=== PATIENT | female | born 1960 | race Caucasian/White ===

== ENCOUNTER 2017-01-27 15:15 | Inpatient (IN) | payer OTHER ==
[~2017-01-27] VITALS: Ht 160 cm; Wt 54.2 kg
[2017-01-27] MEDS ORDERED: PANTOPRAZOLE IV 80 MG in SOD CHLORIDE 0.9% 100 ML IV STA (19:45)
[2017-01-27] MEDS ORDERED: SOD CHLORIDE 0.9% 1,000 ML IV STA (19:45)
[2017-01-27] MEDS ORDERED: OCTREOTIDE 500 MCG in SOD CHLORIDE 0.9% 49 ML IV STA (19:45)
[2017-01-27] MEDS ORDERED: PANTOPRAZOLE IV 80 MG in SOD CHLORIDE 0.9% 100 ML IVPB STA (19:45)
[2017-01-27] MEDS ORDERED: PANTOPRAZOLE 40 MG INJ IV STA (19:45)
[2017-01-27] MEDS ORDERED: OCTREOTIDE 50 MCG in SOD CHLORIDE 0.9% 25 ML IVPB STA (19:45)
[2017-01-27] MEDS ORDERED: FAMOTIDINE 20 MG INJ IV STA (19:45)
[2017-01-27] MEDS ORDERED: ONDANSETRON INJ 8 MG in DEXTROSE 5% 50 ML IVPB STA (19:45)
[2017-01-27 20:13] LABS: ADD SCAN DIFF NO
[2017-01-27 20:17] LABS: BASOPHILS % 0.4 % (0.0-2.0); HEMATOCRIT 28.5 % (37.0-47.0); HEMOGLOBIN 8.7 g/dl (12.0-16.0); LYMPHOCYTES # 2.5 10^3/ul (0.8-2.9); LYMPHOCYTES % 32.6 % (15.0-51.0); MEAN CORPUSCULAR HGB CONC 30.5 g/dl (32.0-37.0); MEAN CORPUSCULAR VOLUME 85.1 fl (82.0-101.0); MEAN PLATELET VOLUME 10.3 fl (7.4-10.4); MONOCYTE # 0.6 10^3/ul (0.3-0.9); MONOCYTES % 7.8 % (0.0-11.0); NEUTROPHIL # 4.6 10^3/ul (1.6-7.5); NEUTROPHILS % 58.8 % (39.0-77.0); PLATELET COUNT 190 10^3/UL (140-415); RED BLOOD COUNT 3.35 10^6/ul (4.20-5.40); WHITE BLOOD COUNT 7.8 10^3/ul (4.8-10.8)
[2017-01-27 20:27] LABS: INR 1.31; PROTIME 16.4 Sec (12.2-14.2); PT RATIO 1.3
[2017-01-27 20:28] LABS: PARTIAL THROMBOPLASTIN TIME 30.9 Sec (25.0-35.0)
[2017-01-27 20:38] LABS: ALBUMIN 3.3 g/dl (3.3-4.9); CHLORIDE 107 mmol/L (97-110); SODIUM 141 mmol/L (135-144)
[2017-01-27 20:39] LABS: POTASSIUM 4.4 mmol/L (3.5-5.1)
[2017-01-27 20:40] LABS: AMYLASE 57 U/L (11-123)
[2017-01-27] MEDS ORDERED: LACT10SO5 PO (20:40)
[2017-01-27 20:41] LABS: ALANINE AMINOTRANSFERASE 39 IU/L (13-69); ALBUMIN/GLOBULIN RATIO 0.94; ALKALINE PHOSPHATASE 90 IU/L (42-121); ANION GAP 14 (8-16); ASPARTATE AMINO TRANSFERASE 50 IU/L (15-46); BILIRUBIN,INDIRECT 1.1 mg/dl (0-1.1); BILIRUBIN,TOTAL 1.1 mg/dl (0.2-1.3); BLOOD UREA NITROGEN 27 mg/dl (7-20); CALCIUM 9.4 mg/dl (8.4-10.2); CARBON DIOXIDE 24 mmol/L (21-31); CREATININE 0.62 mg/dl (0.44-1.00); GLUCOSE 105 mg/dl (70-220); TOTAL PROTEIN 6.8 g/dl (6.1-8.1)
[2017-01-27] MEDS ORDERED: FURO20TA3 PO (20:41)
--- NOTE | 2017-01-27 20:41 | RADRPT ---
PROCEDURE: XR Chest. CLINICAL INDICATION: Over GI bleed. TECHNIQUE: PA and Lateral views of the chest were obtained. COMPARISON: No. FINDINGS: The soft tissues are normal. The bony elements are normal. The heart, cardiomediastinal silhouette and hilar structures are normal. The pulmonary vasculature is normal. There is a left-sided aorta. The lungs are clear. The costophrenic angles are normal. IMPRESSION: 1. Normal chest x-ray. RPTAT:AAJJ Physician Roma Date Time Electronically viewed and signed by Teo Hassan Physician on 01/27/2017 20:41 DAVID/
[2017-01-27] MEDS ORDERED: PROP60CA7 PO (20:43)
[2017-01-27] MEDS ORDERED: PROP20TA4 PO (20:43)
[2017-01-27] MEDS ORDERED: VITBC GTB (20:46)
[2017-01-27] MEDS ORDERED: B CO PO (20:46)
[2017-01-27] MEDS ORDERED: MULTI PO (20:46)
[2017-01-27 21:04] LABS: TROPONIN-I < 0.012 ng/ml (0.00-0.12)
--- NOTE | 2017-01-27 22:44 | ERA ---
ER Documentation Chief Complaint Date/Time DATE: 01/27/17 TIME: 22:38 Chief Complaint C/O BLOOD IN STOOL LAST NIGHT AND VOMITING BLOOD TODAY. HPI This is a 56-year-old female with a known history of esophageal varices secondary to liver cirrhosis from alcoholism diagnosed in October 2016. The patient indicates that yesterday evening she noticed dark tarry stools. She awoke this morning roughly 10 hours prior to arrival and had roughly 6 episodes of hemoptysis. She is feeling lightheaded and dizzy but denies a headache. She indicates she had a similar episode of hemoptysis on her diagnosis of liver cirrhosis in October 2016 and underwent an upper endoscopy with cauterization of her varices. She denies any fever shaking or chills. She has no shortness of breath at rest or exertion. She indicates she has not consumed any alcohol since October 2016 and denies any illicit drug use ROS All systems reviewed and are negative except as per history of present illness. Medications Home Meds Reported Medications Multivitamins* (Theragran*) 1 Tab Tab, 1 TAB PO DAILY, TAB 01/27/17 Vitamin B Complex/Vit C (Total B with C) 1 Each Tablet, 1 EACH GTB, TAB 01/27/17 B Complex with Vitamin C ([place] with C) 1 Each Tablet, 1 EACH PO, TAB 01/27/17 Propranolol Hcl* (Propranolol Hcl*) 20 Mg Tablet, 20 MG PO TWICE DAILY, TAB 01/27/17 Furosemide* (Furosemide*) 20 Mg Tablet, 20 MG PO BID, #30 TAB 01/27/17 Lactulose* (Lactulose*) 10 Gm/15 Ml Solution, 10 GM PO TAKE 20ml BID, ML 01/27/17 Discontinued Reported Medications Propranolol Hcl* (Inderal* LA) 60 Mg Cap.sa.24h, 60 MG PO DAILY, CAP 01/27/17 Allergies Allergies: Coded Allergies: No Known Allergy (Unverified , 01/27/17) PMhx/Soc History of Surgery: No Anesthesia Reaction: No Hx Neurological Disorder: No Hx Respiratory Disorders: No Hx Cardiac Disorders: Yes (HTN,hypotensive) Hx Psychiatric Problems: No Hx Miscellaneous Medical Probl: Yes (esophageal varices,liver cirrhosis) Hx Alcohol Use: No Hx Substance Use: No Hx Tobacco Use: Yes (quit) Smoking Status: Former smoker Physical Exam Vitals Vital Signs Date Time Temp Pulse Resp B/P Pulse Ox O2 Delivery O2 Flow Rate FiO2 01/27/17 20:13 Nasal Cannula 2 01/27/17 20:09 96 17 101/66 100 Nasal Cannula 2.0 01/27/17 15:33 97.7 94 16 93/52 99 Physical Exam Constitutional:Well-developed. Well-nourished. Actively vomiting bright red blood. HEENT:Normocephalic. Atraumatic.Pupils were equal round reactive to light. Moist mucous membranes.No tonsillar exudates. Conjunctival pallor Neck: No nuchal rigidity. No lymphadenopathy. No posterior cervical spine tenderness or step-offs. Respiratory: Not using accessory muscles of respiration.Lungs were clear to auscultation bilaterally. No rhonchi. No rales. No wheezing. Cardiovascular: Regular rate regular rhythm.No murmurs. No rubs were appreciated.S1, S2 normal. Distal pulses are palpable 2+ bilaterally. GI: Abdomen was soft. Hepatomegaly. Nontender. Non Distended. No pulsatile abdominal masses or bruits. No rebound. No guarding. Bowel sounds were present and normal. Rectal: No hemorrhoids present. Melanotic stools present if patient had a bowel movement upon arrival into the emergency department with fecal occult blood test positive Muscle skeletal: Full range of motion of both the upper and lower extremities bilaterally.Normal muscle tone.No assymetrical calf tenderness or swelling. Skin: Diffuse pallor with no petechia, no purpura. No lesions on the palms or the soles of the feet. No maculopapular rash. NEURO: Patient was alert, awake, orientated x3.No facial droop. Gait observed and normal with no ataxia.Speech had regular rate and rhythm. No focal neurological deficits. Result Diagram: 01/27/17194901/27/171949 Results 24 hrs Laboratory Tests Test 01/27/17 19:50 White Blood Count 7.810^3/ul Red Blood Count 3.3510^6/ul Hemoglobin 8.7g/dl Hematocrit 28.5% Mean Corpuscular Volume 85.1fl Mean Corpuscular Hemoglobin 26.0pg Mean Corpuscular Hemoglobin Concent 30.5g/dl Red Cell Distribution Width 19.0% Platelet Count 80439^3/UL Mean Platelet Volume 10.3fl Neutrophils % 58.8% Lymphocytes % 32.6% Monocytes % 7.8% Eosinophils % 0.0% Basophils % 0.4% Nucleated Red Blood Cells % 0.0/100WBC Neutrophils # 4.610^3/ul Lymphocytes # 2.510^3/ul Monocytes # 0.610^3/ul Eosinophils # 0.010^3/ul Basophils # 0.010^3/ul Nucleated Red Blood Cells # 0.010^3/ul Prothrombin Time 16.4Sec Prothrombin Time Ratio 1.3 INR International Normalized Ratio 1.31 Activated Partial Thromboplast Time 30.9Sec Sodium Level 141mmol/L Potassium Level 4.4mmol/L Chloride Level 107mmol/L Carbon Dioxide Level 24mmol/L Anion Gap 14 Blood Urea Nitrogen 27mg/dl Creatinine 0.62mg/dl Glucose Level 105mg/dl Calcium Level 9.4mg/dl Total Bilirubin 1.1mg/dl Direct Bilirubin 0.00mg/dl Indirect Bilirubin 1.1mg/dl Aspartate Amino Transf (AST/SGOT) 50IU/L Alanine Aminotransferase (ALT/SGPT) 39IU/L Alkaline Phosphatase 90IU/L Troponin I < 0.012ng/ml Total Protein 6.8g/dl Albumin 3.3g/dl Globulin 3.50g/dl Albumin/Globulin Ratio 0.94 Amylase Level 57U/L Lipase 179U/L Current Medications Medications (Trade) Dose Ordered Sig/Luna Route PRN Reason Start Time Stop Time Status Last Admin Dose Admin Sodium Chloride (NS) 1,000 ml @ 1,000 mls/hr Q1H STAT IV 01/27/17 19:45 01/27/17 20:44 DC 01/27/17 20:18 Famotidine (Pepcid Iv) 20 mg ONCE STAT IV 01/27/17 19:45 01/27/17 19:55 DC 01/27/17 20:09 Pantoprazole 40 mg 40 mg ONCE STAT IV 01/27/17 19:45 01/27/17 19:55 DC 01/27/17 20:09 Pantoprazole 80 mg/Sodium Chloride 100 ml @ 400 mls/hr ONCE STAT IVPB 01/27/17 19:45 01/27/17 19:59 DC 01/27/17 22:24 Pantoprazole 80 mg/Sodium Chloride 100 ml @ 10 mls/hr ONCE STAT IV 01/27/17 19:45 01/28/17 05:44 Octreotide Acetate 50 mcg/ Sodium Chloride 26 ml @ 100 mls/hr Q16M STAT IVPB 01/27/17 19:45 01/27/17 20:00 DC 01/27/17 21:06 Octreotide Acetate 500 mcg/ Sodium Chloride 50 ml @ 5 mls/hr ONCE STAT IV 01/27/17 19:45 01/28/17 05:44 01/27/17 21:34 Ondansetron HCl/ Dextrose (Zofran Inj/D5W) 54 ml @ 200 mls/hr ONCE STAT IVPB 01/27/17 19:45 01/27/17 20:01 DC 01/27/17 20:47 Procedures/MDM The patient presented to the emergency department with a presentation of upper gastrointestinal bleeding. My differential diagnosis included but was not limited to peptic ulcer disease, gastric or esophageal erosions, gastritis, esophageal varices, Padmaja-Molina tear, tumor or arteriovenous malformations. The patient was immediately placed in a engine monitor continuous pulse oximetry and IV access was established by nursing staff. Patient received a liter bolus of 0.9 normal saline. The patient was given IV Zofran as an antiemetic. She was typed and crossed and the patient was anemic with hemoglobin of 8.7 but given that her hemoptysis had resolved after IV Zofran, Protonix and octreotide drip, a blood transfusion was not given. 12 Lead EKG tracing ordered and reviewed by myself showed: Normal sinus rhythm of 89 bpm and no arrhythmia. NJ interval normal. QRS duration normal. No ST segment elevation No ST segment depression. No changes consistent with acute ischemia. Obtained a chest radiograph which showed no infiltrates no pneumothorax and no esophageal rupture pneumomediastinum. Blood cultures were obtained. The patient will be admitted in serious condition to the ICU under the care of the hospitalist on day with an anticipated stay of greater than 2 midnights. Critical Care: Time: 70 minutes Treatments/Evaluations: Close monitoring and treatment of unstable vital signs, cardiorespiratory, and neurologic status, while maintaining tight balance of fluid, respiratory, and cardiac interventions. Time does not include performing any of the above billable procedures. Departure Diagnosis: Primary Impression: Occult blood in stools Additional Impression: Upper gastrointestinal bleed Condition: Serious JOAN FIELDS Jan 27, 2017 22:44
[2017-01-28] VITALS (15 sets, daily range): BP systolic 86–113; BP diastolic 51–66; PULSE 82–93; RESP 16–26; TEMP 98.2; Ht 160 cm; Wt 54.2 kg
[2017-01-28] MEDS: PANTOPRAZOLE IV 80 MG in SOD CHLORIDE 0.9% 100 ML IV SCH ×3 (01:11→22:45)
[2017-01-28 02:25] LABS: ADD UMIC YES; URINE BILIRUBIN (Dip) NEGATIVE (NEGATIVE); URINE BLOOD (Dip) NEGATIVE (NEGATIVE); URINE COLOR LT. YELLOW (YELLOW); URINE GLUCOSE (Dip) NEGATIVE (NEGATIVE); URINE KETONES (Dip) TRACE (NEGATIVE); URINE LEUKOCYTE ESTERASE (Dip) 1+ (NEGATIVE); URINE NITRITE (Dip) NEGATIVE (NEGATIVE); URINE TOTAL PROTEIN (Dip) NEGATIVE (NEGATIVE); URINE UROBILINOGEN (Dip) 0.2 E.U./dL (0.1-1.0)
[2017-01-28 02:39] LABS: BACTERIA,URINE FEW; SQUAMOUS EPITHELIAL CELL,UR MANY; URINE RBCS 0-2 /HPF (0)
--- NOTE | 2017-01-28 05:19 | HP ---
Date/Time of Note Date/Time of Note DATE: 01/28/17 TIME: 05:09 Assessment/Plan Assessment/Plan Assessment/Plan IMPRESSION 1. GI Bleed. likely 2/2 bleeding varices 2. Decompensated Liver Cirrhosis 3. Anemia 2/2 GI Bleed PLAN Admit to ICU Protonix and Octreotide gtt Keep NPO with IVF monitor h/h and transfuse as needed GI consult HPI/ROS Admit Date/Time Admit Date/Time Hx of Present Illness Patient is a 56 yo female with hx of HTN and alcoholic liver cirrhosis who presented to ER c/o vomiting blood with clots and dark stool since yesterday. She reported multiple episodes of hemoptysis. She was dx'd with cirrhosis and underwent EGD in October for upper GI bleed. At that time, she was found to have varices that were cauterized. She also reported of generalized weakness and dizziness. Denied CP, SOB, fever, chills. In ER, hgb was 8.7. Initial BP was 93/52 with HR in 90s. . PMH/Family/Social Social History Smoking Status: Former smoker Exam/Review of Systems Vital Signs Vitals Vital Signs Date Time Temp Pulse Resp B/P Pulse Ox O2 Delivery O2 Flow Rate FiO2 01/28/17 02:00 81 17 93/44 98 Nasal Cannula 2.0 01/27/17 15:33 97.7 Intake and Output 01/27/17 01/27/17 01/28/17 15:00 23:00 07:00 Intake Total 1179 ml Balance 1179 ml Labs Result Diagram: 01/27/17 1950 01/27/17 1950 Medications Medications Current Medications Pantoprazole 80 mg/Sodium Chloride 100 ml @ 10 mls/hr Q10H IV ; Start 01/28/17 at 01:11 Octreotide Acetate 1 mg/ Sodium Chloride 100 ml @ 5 mls/hr Q20H IV ; Start 01/28 at 01:11 Dextrose/Sodium Chloride (D5-1/2ns) 1,000 ml @ 100 mls/hr Q10H IV ; Start 01/28 at 01:30 HERNAN UMANA MD Jan 28, 2017 05:19
[2017-01-28 05:34] LABS: ADD SCAN DIFF NO
[2017-01-28] MEDS: DEXTROSE 5%-0.45% NACL 1,000 ML IV SCH ×3 (05:43→22:47)
[2017-01-28 05:49] LABS: ABNORMAL IP MESSAGE 1; HEMATOCRIT 22.8 % (37.0-47.0); MEAN CORPUSCULAR HEMOGLOBIN 26.5 pg (29.0-33.0); MEAN CORPUSCULAR HGB CONC 30.3 g/dl (32.0-37.0); MEAN CORPUSCULAR VOLUME 87.7 fl (82.0-101.0); MEAN PLATELET VOLUME 10.3 fl (7.4-10.4); PLATELET COUNT 167 10^3/UL (140-415); RED CELL DISTRIBUTION WIDTH 19.4 % (11.5-14.5); WHITE BLOOD COUNT 7.7 10^3/ul (4.8-10.8)
[2017-01-28 05:57] LABS: INR 1.39; PROTIME 17.1 Sec (12.2-14.2); PT RATIO 1.3
[2017-01-28 05:58] LABS: PARTIAL THROMBOPLASTIN TIME 31.7 Sec (25.0-35.0)
[2017-01-28 06:00] LABS: HEMOGLOBIN 6.9 g/dl (12.0-16.0)
[2017-01-28 06:04] LABS: ALBUMIN 2.9 g/dl (3.3-4.9); ALBUMIN/GLOBULIN RATIO 0.93; BILIRUBIN,INDIRECT 0.9 mg/dl (0-1.1); BILIRUBIN,TOTAL 0.9 mg/dl (0.2-1.3); CALCIUM 8.8 mg/dl (8.4-10.2); CREATININE 0.7 mg/dl (0.44-1.00); IRON 69 ug/dl (35-150); POTASSIUM 4.7 mmol/L (3.5-5.1)
[2017-01-28 06:13] LABS: TOTAL IRON BINDING CAPACITY 364 ug/dl (241-421)
--- NOTE | 2017-01-28 06:59 | QN ---
Documentation Comment The patient has been in the ER for over 15 hours at this point waiting in ICU bed. Patient's vital signs are stable and I evaluated the patient and she seems comfortable. I do not believe she requires ICU level of care and will downgrade to a telemetry bed. KHUSHBU CHAVEZ MD Jan 28, 2017 06:59
[2017-01-28] MEDS: OCTREOTIDE 1 MG in SOD CHLORIDE 0.9% 95 ML IV SCH ×2 (07:48→22:45)
[2017-01-28 09:52] LABS: EOSINOPHILS # 0.1 10^3/ul (0.0-0.5); LYMPHOCYTES # 2.2 10^3/ul (0.8-2.9); MONOCYTE # 0.4 10^3/ul (0.3-0.9); NEUTROPHIL # 5.1 10^3/ul (1.6-7.5)
[2017-01-28] MEDS ORDERED: LIDOCAINE 2% (SDV) 5 ML INJ ONE (14:55)
[2017-01-28] MEDS ORDERED: PROPOFOL 40 ML ONE (14:55)
[2017-01-28] MEDS ORDERED: HYDROmorphONE (0.2 MG/ML) 10ML SYG IV PRN ×3 (16:00)
[2017-01-28] MEDS ORDERED: ONDANSETRON 4 MG INJ IV PRN (16:00)
[2017-01-28] MEDS ORDERED: PROCHLORPERAZINE 10 MG INJ IV PRN (16:00)
[2017-01-28] MEDS ORDERED: DIPHENHYDRAMINE 50 MG INJ IV PRN (16:00)
[2017-01-28] MEDS ORDERED: EPHEDrine SULFATE 50 MG/5 ML SYG IV PRN (16:00)
[2017-01-28] MEDS ORDERED: TRIMETHOBENZAMIDE 100 MG/ML VIAL IM PRN (16:00)
[2017-01-28] MEDS ORDERED: METOCLOPRAMIDE 10 MG INJ IV PRN (16:00)
[2017-01-28] MEDS: CEFTRIAXONE 1 GM/50 ML (PMX) 50 ML IVPB SCH (17:36)
--- NOTE | 2017-01-28 17:43 | CONS ---
Date/Time of Note Date/Time of Note DATE: 01/28/17 TIME: 17:29 Assessment/Plan Assessment/Plan Additional Assessment/Plan Assessment * Anemia * Hematemesis * Upper GI bleed * consider Bleeding esophageal varices Cirrhosis of liver Plan EGD today risks and benefits explained to patient agreed with procedure continue present medications monitor HandH q6 and transfuse per protocol Consultation Date/Type/Reason Admit Date/Time Date of Consultation: Jan 28, 2017 Type of Consultation: Gasroenterology Reason for Consultation GI bleed Referring Provider: HERNAN UMANA MD Hx of Present Illness 56 y/o female seen in the emergency room with complaint of hematemesis.Past medical history includes alcoholic liver cirrhosis,2 episode of EGD gastric banding secondary to bleeding esophageal varices .She had multiple episodes of hematemesis with blood clots with associated body weakness,dizziness but denies any chest pain ,fever,or hematochezia.Initial hemoglobin at the ER is 8.5 but later had episode of hematemesis about 200 cc.Subsequent repeat of hemoglobin revealed 6.5 hence 2 units of PRBC was transfused. On the floor ,patient was weak but no episode of hematemesis was noted Eyes: no complaints ENT: no complaints Respiratory: no complaints Cardiovascular: no complaints Gastrointestinal: blood, nausea, vomiting Genitourinary: no complaints Musculoskeletal: no complaints Skin: no complaints Neurologic: no complaints Endocrine: no complaints Lymphatic: no complaints Psychological: nl mood/affect, no complaints Immunologic: no complaints Past Medical History Medical History: GI bleed, other (cirrhosis) Past Surgical History Past Surgical Hx: endoscopy (endoscopy and banding) Family History Significant Family History: no pertinent family hx Social History Alcohol Use: none (stopped few years ago) Smoking Status: Former smoker Exam/Review of Systems Vital Signs Vitals Vital Signs Date Time Temp Pulse Resp B/P Pulse Ox O2 Delivery O2 Flow Rate FiO2 01/28/17 16:58 Nasal Cannula 2.0 01/28/17 16:36 86 01/28/17 16:08 17 105/57 100 01/28/17 15:52 98.0 Intake and Output 01/27/17 01/27/17 01/28/17 15:00 23:00 07:00 Intake Total 1179 ml Balance 1179 ml Exam Constitutional: alert, oriented, well developed Psych: nl mood/affect, no complaints Head: atraumatic, normocephalic Eyes: EOMI, PERRL, nl conjunctiva, nl lids, nl sclera ENMT: nl external ears & nose, nl lips & teeth, nl nasal mucosa & septum Neck: non-tender, supple Respiratory: clear to auscultation, normal air movement Cardiovascular: nl pulses, regular rate and rhythm Gastrointestinal: nl liver, spleen, non-tender, soft Musculoskeletal: nl extremities to inspection, nl gait and stance Extremities: normal pulses Neurological: nl mental status, nl speech, nl strength Skin: nl turgor, No rash or lesions Lymph: nl lymph nodes Results Result Diagram: 01/28/1751901/28/1720 Results 24 hrs Laboratory Tests Test 01/27/17 19:50 01/28/17 01:00 01/28/17 05:20 White Blood Count 7.8 7.7 Red Blood Count 3.35 L 2.60 #L Hemoglobin 8.7 L 6.9 #*L Hematocrit 28.5 L 22.8 L Mean Corpuscular Volume 85.1 87.7 Mean Corpuscular Hemoglobin 26.0 L 26.5 L Mean Corpuscular Hemoglobin Concent 30.5 L 30.3 L Red Cell Distribution Width 19.0 H 19.4 H Platelet Count 190 167 Mean Platelet Volume 10.3 10.3 Neutrophils % 58.8 66.0 Lymphocytes % 32.6 28.0 Monocytes % 7.8 5.0 Eosinophils % 0.0 1.0 Basophils % 0.4 Nucleated Red Blood Cells % 0.0 Neutrophils # 4.6 5.1 Lymphocytes # 2.5 2.2 Monocytes # 0.6 0.4 Eosinophils # 0.0 0.1 Basophils # 0.0 Nucleated Red Blood Cells # 0.0 Prothrombin Time 16.4 H 17.1 H Prothrombin Time Ratio 1.3 1.3 INR International Normalized Ratio 1.31 1.39 Activated Partial Thromboplast Time 30.9 31.7 Sodium Level 141 141 Potassium Level 4.4 4.7 Chloride Level 107 114 H Carbon Dioxide Level 24 22 Anion Gap 14 10 Blood Urea Nitrogen 27 H 26 H Creatinine 0.62 0.70 Glucose Level 105 112 Calcium Level 9.4 8.8 Total Bilirubin 1.1 0.9 Direct Bilirubin 0.00 0.00 Indirect Bilirubin 1.1 0.9 Aspartate Amino Transf (AST/SGOT) 50 H 48 H Alanine Aminotransferase (ALT/SGPT) 39 40 Alkaline Phosphatase 90 76 Troponin I < 0.012 Total Protein 6.8 6.0 L Albumin 3.3 2.9 L Globulin 3.50 H 3.10 Albumin/Globulin Ratio 0.94 0.93 Amylase Level 57 Lipase 179 Urine Color LT. YELLOW Urine Clarity CLEAR Urine pH 5.5 Urine Specific [place] 1.020 Urine Ketones TRACE H Urine Nitrite NEGATIVE Urine Bilirubin NEGATIVE Urine Urobilinogen 0.2 E.U./dL Urine Leukocyte Esterase 1+ H Urine Microscopic RBC 0-2 Urine Microscopic WBC 10-25 Urine Squamous Epithelial Cells MANY Urine Bacteria FEW Urine Hemoglobin NEGATIVE Urine Glucose NEGATIVE Urine Total Protein NEGATIVE Iron Level 69 Total Iron Binding Capacity 364 Percent Iron Saturation 19 L Ferritin 16.4 Medications Medications Current Medications Pantoprazole 80 mg/Sodium Chloride 100 ml @ 10 mls/hr Q10H IV Last administered on 01/28/17 11:18; Admin Dose 10 MLS/HR; Start 01/28/17 at 01:11 Octreotide Acetate 1 mg/ Sodium Chloride 100 ml @ 5 mls/hr Q20H IV Last administered on 01/28/17 07:48; Admin Dose 5 MLS/HR; Start 01/28/17 at 01:11 Dextrose/Sodium Chloride 1,000 ml @ 100 mls/hr Q10H IV Last administered on 12:18; Admin Dose 100 MLS/HR; Start 01/28/17 at 01:30 Ceftriaxone Sodium (Rocephin) 50 ml @ 100 mls/hr Q24H IVPB ; Start 01/28/17 at 15:00 CORTNEY RANGEL MD Jan 28, 2017 17:39
[2017-01-28 19:10] LABS: HEMATOCRIT 28.5 % (37.0-47.0); HEMOGLOBIN 9.3 g/dl (12.0-16.0)
[2017-01-29] VITALS (13 sets, daily range): BP systolic 100–126; BP diastolic 64–76; PULSE 76–98; RESP 16–18
[2017-01-29 00:46] LABS: HEMATOCRIT 26.5 % (37.0-47.0); HEMOGLOBIN 8.6 g/dl (12.0-16.0)
--- NOTE | 2017-01-29 04:58 | GILP ---
DATE OF PROCEDURE: PROCEDURE: Esophagogastroduodenoscopy with endoscopic variceal ligation. PREMEDICATION: Monitored anesthesia care by anesthesiologist. SURGEON: Cortney Rodriguez MD INSTRUMENT USED: Olympus panendoscope. TECHNIQUE: After informed consent, with the patient/relatives understanding the procedure, its indic ations, potential risks and complications, including but not limited to: allergic reaction, bleeding , perforation or infection, and after all pertinent questions were answered to the patients satisfac tion, the patient/relatives signed witnessed informed consent. Following this, premedication was administered slowly IV push under careful cardiovascular and respi ratory monitoring with pulse oximetry, automatic blood pressure and shelter monitor. Once the sedative effect was achieved the patient was place in the left lateral decubitus, the panen doscope was introduced and advanced under visual control. Careful examination of the upper gastrointestinal tract, both on insertion as well as withdrawal of the instrument disclosed the following findings: ESOPHAGUS: The distal esophagus shows grade III/IV esophageal varices. There is stigmata suggestiv e of recent bleeding in one of the varices. STOMACH: Upon entrance to the stomach, air was insufflated, the gastric niño distended normally. There is erythema and edema as well as congestion and friability consistent with portal gastropathy. PYLORUS: The pylorus appears patent and within normal limits, with no evidence of gastric outlet ob struction. DUODENUM: The duodenal mucosa was carefully examined in the duodenal bulb as well as the second por tion of the duodenum and appears unremarkable with no evidence of duodenitis, ulcer or neoplasm. At this point, the instrument was withdrawn. The banding device was attached to the tip of the inst rument, and the instrument was then reintroduced. We deployed 3 bands in the most prominent varicea l channels without evidence of complication. The instrument was then withdrawn, the patient tolerated the procedure well and was transfer out of the endoscopy suite awake, and in good condition to continue recovery under observation IMPRESSION: 1. Grade III/IV esophageal varices post endoscopic variceal ligation x3. 2. Portal gastropathy. PLAN: The patient will be treated with PPIs. Her diet will be advanced as tolerated. Further enrique mmendation will depend on the patient's clinical course. Dictated By: CORTNEY RODRIGUEZ MS/ROBERT Conf#: [id number] DID#: [id number]
[2017-01-29] MEDS: PANTOPRAZOLE IV 80 MG in SOD CHLORIDE 0.9% 100 ML IV SCH (07:11)
[2017-01-29] MEDS: DEXTROSE 5%-0.45% NACL 1,000 ML IV SCH ×2 (07:30→17:47)
[2017-01-29 08:03] LABS: HEMATOCRIT 24.5 % (37.0-47.0); HEMOGLOBIN 7.9 g/dl (12.0-16.0)
[2017-01-29 08:33] LABS: ALBUMIN 2.6 g/dl (3.3-4.9); ALBUMIN/GLOBULIN RATIO 0.96; BILIRUBIN,INDIRECT 1.4 mg/dl (0-1.1); BILIRUBIN,TOTAL 1.4 mg/dl (0.2-1.3); CALCIUM 8.4 mg/dl (8.4-10.2); CREATININE 0.73 mg/dl (0.44-1.00); POTASSIUM 3.9 mmol/L (3.5-5.1); TOTAL PROTEIN 5.3 g/dl (6.1-8.1)
[2017-01-29 13:57] LABS: HEMATOCRIT 22.1 % (37.0-47.0); HEMOGLOBIN 7.3 g/dl (12.0-16.0)
[2017-01-29] MEDS: CEFTRIAXONE 1 GM/50 ML (PMX) 50 ML IVPB SCH (15:39)
--- NOTE | 2017-01-29 16:37 | PN ---
Date/Time of Note Date/Time of Note DATE: 01/29/17 TIME: 16:35 Assessment/Plan VTE Prophylaxis VTE Prophylaxis Intervention: ambulation Lines/Catheters IV Catheter Type (from Nrs): Peripheral IV Assessment/Plan Chief Complaint/Hosp Course 1. GI Bleed 2/2 bleeding varices s/p Banding -cont PPI -s/p 2 units of PRBC's -advance diet per GI 2. Decompensated Liver Cirrhosis -cont Home Rx 3. Anemia 2/2 GI Bleed -as above Problems: Subjective 24 Hr Interval Summary Constitutional: no complaints Exam/Review of Systems Vital Signs Vitals Vital Signs Date Time Temp Pulse Resp B/P Pulse Ox O2 Delivery O2 Flow Rate FiO2 01/29/17 16:30 81 01/29/17 00:45 98.7 18 122/64 96 Room Air 01/28/17 16:58 2.0 Intake and Output 01/28/17 01/28/17 01/29/17 15:00 23:00 07:00 Intake Total 2150 ml 420 ml Balance 2150 ml 420 ml Exam Constitutional: alert, oriented Respiratory: clear to auscultation Cardiovascular: regular rate and rhythm Gastrointestinal: soft, No distended Musculoskeletal: nl extremities to inspection Results Result Diagram: 01/29/17 1350 01/29/17 0655 Results 24 hrs Laboratory Tests Test 01/28/17 18:40 01/29/17 00:10 01/29/17 06:55 01/29/17 13:50 Hemoglobin 9.3 #L 8.6 L 7.9 L 7.3 L Hematocrit 28.5 #L 26.5 L 24.5 L 22.1 L Sodium Level 136 Potassium Level 3.9 Chloride Level 112 H Carbon Dioxide Level 21 Anion Gap 7 L Blood Urea Nitrogen 19 Creatinine 0.73 Glucose Level 118 Calcium Level 8.4 Total Bilirubin 1.4 H Direct Bilirubin 0.00 Indirect Bilirubin 1.4 H Aspartate Amino Transf (AST/SGOT) 49 H Alanine Aminotransferase (ALT/SGPT) 39 Alkaline Phosphatase 65 Total Protein 5.3 L Albumin 2.6 L Globulin 2.70 Albumin/Globulin Ratio 0.96 Medications Medications Current Medications Pantoprazole 80 mg/Sodium Chloride 100 ml @ 10 mls/hr Q10H IV Last administered on 01/29/17t 07:11; Admin Dose 10 MLS/HR; Start 01/28/17 at 01:11 Octreotide Acetate 1 mg/ Sodium Chloride 100 ml @ 5 mls/hr Q20H IV Last administered on 01/28/17 22:45; Admin Dose 5 MLS/HR; Start 01/28/17 at 01:11 Dextrose/Sodium Chloride 1,000 ml @ 100 mls/hr Q10H IV Last administered on 07:30; Admin Dose 100 MLS/HR; Start 01/28/17 at 01:30 Ceftriaxone Sodium (Rocephin) 50 ml @ 100 mls/hr Q24H IVPB Last administered on 01/29/17 15:39; Admin Dose 100 MLS/HR; Start 01/28/17 at 15:00 GERBER LOW Jan 29, 2017 16:37
--- NOTE | 2017-01-29 17:31 | PN ---
Date/Time of Note Date/Time of Note DATE: 01/29/17 TIME: 17:23 Assessment/Plan VTE Prophylaxis VTE Prophylaxis Intervention: SCD's Lines/Catheters IV Catheter Type (from Nrs): Peripheral IV Assessment/Plan Assessment/Plan Anemia * Hematemesis * Upper GI bleed * Bleeding esophageal varices * EGD 01/28/2017 . Grade III/IV esophageal varices post endoscopic variceal ligation x3. . Portal gastropathy. Cirrhosis of liver Plan d/c protonix drip shift to protonix 40 mg bid continue present medications monitor Hand H q6 and transfuse per protocol Subjective 24 Hr Interval Summary Free Text/Dictation * Course reviewed with RN * patient seen and examined * No hematemesis but still with hematochezia minimal * Awaiting Hand H result for 1800 * EGD 01/28/2017 Grade III/IV esophageal varices post endoscopic variceal ligation x3. Portal gastropathy. Exam/Review of Systems Vital Signs Vitals Vital Signs Date Time Temp Pulse Resp B/P Pulse Ox O2 Delivery O2 Flow Rate FiO2 01/29/17 16:30 81 01/29/17 00:45 98.7 18 122/64 96 Room Air 01/28/17 16:58 2.0 Intake and Output 01/28/17 01/28/17 01/29/17 15:00 23:00 07:00 Intake Total 2150 ml 420 ml Balance 2150 ml 420 ml Exam Constitutional: alert, oriented Head: normocephalic Eyes: PERRL, nl sclera Neck: non-tender, supple Respiratory: clear to auscultation, normal air movement Cardiovascular: nl pulses, regular rate and rhythm Gastrointestinal: nl liver, spleen, non-tender, soft Musculoskeletal: nl extremities to inspection, nl gait and stance Extremities: normal pulses Neurological: nl strength Skin: nl turgor, rash or lesions Results Result Diagram: 01/29/17 1350 01/29/17 0655 Results 24 hrs Laboratory Tests Test 01/28/17 18:40 01/29/17 00:10 01/29/17 06:55 01/29/17 13:50 Hemoglobin 9.3 #L 8.6 L 7.9 L 7.3 L Hematocrit 28.5 #L 26.5 L 24.5 L 22.1 L Sodium Level 136 Potassium Level 3.9 Chloride Level 112 H Carbon Dioxide Level 21 Anion Gap 7 L Blood Urea Nitrogen 19 Creatinine 0.73 Glucose Level 118 Calcium Level 8.4 Total Bilirubin 1.4 H Direct Bilirubin 0.00 Indirect Bilirubin 1.4 H Aspartate Amino Transf (AST/SGOT) 49 H Alanine Aminotransferase (ALT/SGPT) 39 Alkaline Phosphatase 65 Total Protein 5.3 L Albumin 2.6 L Globulin 2.70 Albumin/Globulin Ratio 0.96 Medications Medications Current Medications Pantoprazole 80 mg/Sodium Chloride 100 ml @ 10 mls/hr Q10H IV Last administered on 01/29/17 07:11; Admin Dose 10 MLS/HR; Start 01/28/17 at 01:11 Octreotide Acetate 1 mg/ Sodium Chloride 100 ml @ 5 mls/hr Q20H IV Last administered on 01/28/17 22:45; Admin Dose 5 MLS/HR; Start 01/28/17 at 01:11 Dextrose/Sodium Chloride 1,000 ml @ 100 mls/hr Q10H IV Last administered on 07:30; Admin Dose 100 MLS/HR; Start 01/28/17 at 01:30 Ceftriaxone Sodium (Rocephin) 50 ml @ 100 mls/hr Q24H IVPB Last administered on 01/29/17 15:39; Admin Dose 100 MLS/HR; Start 01/28/17 at 15:00 CORTNEY RANGEL MD Jan 29, 2017 17:31
[2017-01-29] MEDS: OCTREOTIDE 1 MG in SOD CHLORIDE 0.9% 95 ML IV SCH (17:47)
[2017-01-29 17:57] LABS: HEMATOCRIT 22.8 % (37.0-47.0); HEMOGLOBIN 7.7 g/dl (12.0-16.0)
[2017-01-29] MEDS: PANTOPRAZOLE 40 MG INJ IV SCH (18:47)
[2017-01-30] VITALS (10 sets, daily range): BP systolic 111–118; BP diastolic 58–71; PULSE 69–88; RESP 19
[2017-01-30 01:30] LABS: HEMATOCRIT 22.2 % (37.0-47.0); HEMOGLOBIN 7.2 g/dl (12.0-16.0)
[2017-01-30] MEDS: DEXTROSE 5%-0.45% NACL 1,000 ML IV SCH ×2 (03:30→13:30)
[2017-01-30] MEDS: PANTOPRAZOLE 40 MG INJ IV SCH ×2 (06:37→17:48)
--- NOTE | 2017-01-30 12:12 | PDOCDIS ---
Discharge Instructions CONDITION Patient Condition: Good HOME CARE INSTRUCTIONS: Diet Instructions: Reduced Sodium ACTIVITY: Activity Restrictions: No Restrictions FOLLOW UP/APPOINTMENTS Appointments F/U WITH YOUR PCP IN 1-2 WEEKS GERBER LOW Jan 30, 2017 12:12
[2017-01-30] MEDS ORDERED: PANT40TA3 PO (12:13)
[2017-01-30] MEDS ORDERED: LACTULOSE 30ML CUP PO ONE (13:00)
--- NOTE | 2017-01-30 13:21 | PN ---
Date/Time of Note Date/Time of Note DATE: 01/30/17 TIME: 13:17 Assessment/Plan VTE Prophylaxis VTE Prophylaxis Intervention: ambulation Lines/Catheters IV Catheter Type [facility]from [facility]): Peripheral IV Assessment/Plan Assessment/Plan Assessment/Plan Anemia * Hematemesis * Upper GI bleed * Bleeding esophageal varices * EGD 01/28/2017 . Grade III/IV esophageal varices post endoscopic variceal ligation x3. . Portal gastropathy. Cirrhosis of liver Plan d/c octreotide recheck H and H Subjective 24 Hr Interval Summary Free Text/Dictation * Course reviewed with RN * patient seen and examined * Received 1 unit of PRBC * no hematemesis nor hematochezia Exam/Review of Systems Vital Signs Vitals Vital Signs Date Time Temp Pulse Resp B/P Pulse Ox O2 Delivery O2 Flow Rate FiO2 01/30/17 12:15 69 01/30/17 11:48 98.1 19 116/71 99 01/29/17 12:00 Room Air 01/28/17 16:58 2.0 Exam Constitutional: alert, oriented Psych: nl mood/affect, no complaints Head: atraumatic, normocephalic Eyes: EOMI, nl conjunctiva Neck: non-tender, supple Respiratory: clear to auscultation, normal air movement Cardiovascular: nl pulses, regular rate and rhythm Gastrointestinal: bowel sounds, non-tender, soft, No rebound or guarding Musculoskeletal: nl extremities to inspection Extremities: normal pulses Results Result Diagram: 01/30/17 0053 01/29/17 0655 Results 24 hrs Laboratory Tests Test 01/29/17 13:50 01/29/17 17:35 01/30/17 00:53 Hemoglobin 7.3 L 7.7 L 7.2 L Hematocrit 22.1 L 22.8 L 22.2 L Medications Medications Current Medications Octreotide Acetate 1 mg/ Sodium Chloride 100 ml @ 5 mls/hr Q20H IV Last administered on 01/29/17 17:47; Admin Dose 5 MLS/HR; Start 01/28/17 at 01:11 Dextrose/Sodium Chloride 1,000 ml @ 100 mls/hr Q10H IV Last administered on 03:30; Admin Dose 100 MLS/HR; Start 01/28/17 at 01:30 Ceftriaxone Sodium (Rocephin) 50 ml @ 100 mls/hr Q24H IVPB Last administered on 01/29/17 15:39; Admin Dose 100 MLS/HR; Start 01/28/17 at 15:00 Pantoprazole (Protonix Iv) 40 mg BID@06,18 IV Last administered on 01/30/17 06 :37; Admin Dose 40 MG; Start 01/29/17 at 18:00 CORTNEY RANGEL MD Jan 30, 2017 13:20
[2017-01-30] MEDS: CEFTRIAXONE 1 GM/50 ML (PMX) 50 ML IVPB SCH (15:00)
[2017-01-30 17:31] LABS: HEMATOCRIT 27.3 % (37.0-47.0); HEMOGLOBIN 8.8 g/dl (12.0-16.0)
[2017-01-30 17:39] LABS: POTASSIUM 3.2 mmol/L (3.5-5.1)
[2017-01-30 17:41] LABS: CREATININE 0.69 mg/dl (0.44-1.00)
[2017-01-30 17:42] LABS: CALCIUM 8.1 mg/dl (8.4-10.2)
--- NOTE | 2017-01-31 07:13 | DS ---
DATE OF ADMISSION: 01/27/2017 DATE OF DISCHARGE: 01/30/2017 DISCHARGE DIAGNOSES: 1. Gastrointestinal bleed secondary to variceal bleed status post esophagogastroduodenoscopy with banding. 2. Liver cirrhosis secondary to alcohol abuse in the past. The patient has abstained from drinking in the past several months. Continue home medications. 3. Anemia secondary to gastrointestinal bleed, status post 3 units of packed red blood cells. HOSPITAL COURSE: The patient is a 56-year-old female with a history of alcoholic liver cirrhosis. The patient has not drank for several months now. The patient has had several episodes of GI bleed in the past. The patient was seen by GI. The patient was taken for EGD and had variceal ligation x 3. Treatment with octreotide and Protonix. She was given Rocephin for a UTI. The patient's diet w as slowly advanced and she is taken off a Protonix drip and transitioned to Protonix p.o. The patien t was felt to be stable for discharge. On day of discharge, the patient's vitals, labs, physical ex am were stable. She had no acute complaints and questions were answered. She was transfused 3 unit s of packed red blood cells during hospitalization. CONDITION ON DISCHARGE: Stable. DISPOSITION: Home MEDICATIONS: The patient is to continue her usual home medications. She was also given a prescription for Protonix 40 mg p.o. b.i.d. FOLLOWUP: The patient is to follow up with PCP in 1 to 2 weeks. Greater than 30 minutes was spent coordinating discharge of patient. Dictated By: GERBER COSTA/ROBERT Conf#: [id number] DID#: [id number]
== END 2017-01-30 19:40 | disposition home or self-care (01) | DRG 369 ==
LOC: E/R 15:15 → MS4 22:44
PROVIDERS: ADMIT Internal Medicine; ATTEND Internal Medicine
PROC: 30233N1 Transfusion of Nonautologous Red Blood Cells into Peripheral Vein, Percutaneous Approach (ICD-10-PCS; 2017-01-28)
PROC: 06L34CZ Occlusion of Esophageal Vein with Extraluminal Device, Percutaneous Endoscopic Approach (ICD-10-PCS; principal; 2017-01-28 17:00)
DX: I85.01 Esophageal varices with bleeding (principal); D62 Acute posthemorrhagic anemia; K70.30 Alcoholic cirrhosis of liver without ascites; K31.89 Other diseases of stomach and duodenum; I10 Essential (primary) hypertension; F10.21 Alcohol dependence, in remission; Z87.891 Personal history of nicotine dependence
CPT/HCPCS: 36430; 71010; 80048; 80053; 81001; 81003; 82150; 82728; 83540; 83690; 84484; 85014; 85018; 85025; 85610; 85730; 86850; 86900; 86901; 86920; 93005; 96365; 96367; 96375; 96376; C9113; J0696; J2354; J2405; J7030; J7042; P9016